=== PATIENT | male | born 1945 | race Caucasian/White ===

== ENCOUNTER 2025-01-03 09:40 | Day surgery (SDC) | payer MEDICARE, OTHER, SELFPAY ==
[2025-01-03] VITALS (12 sets, daily range): BP systolic 140–181; BP diastolic 64–100; BMI 33.6
[2025-01-03] MEDS: NSS 296 ML IV (10:37)
--- NOTE | 2025-01-03 11:48 | ITS.CL.PN ---
Customer Relations Consultant - Procedure Note
Procedure
Procedure Note:
CARDIAC CATHETERIZATION REPORT
Date of Procedure: 01/03/2025
Referring: Dr. Haris Garay MD
Indication: anginal chest pain
PROCEDURE(S)
1. left heart catheterization
2. coronary angiography
ACCESS: 6F right radial artery (closure: radial band)
CATHETERS
1. 6F JR4
2. 6F JL4
MODERATE SEDATION: 30 minutes of moderate sedation was utilized. An independent center medical and lab director was present to assist with and help manage the patient's level of consciousness and physiologic status.
HEMODYNAMIC DATA
LV 155/8 (EDP 14) mmHg
AO 160/75 (mean 111) mmHg
CORONARY ANGIOGRAPHY
Dominance: right
LM: large, normal
LAD: large vessel giving rise a moderate caliber D1 and wrapping around the apex. There is mild diffuse disease that is focally up to 30% just distal to the diagonal takeoff.
LCx: large vessel giving rise to a small OM1, small OM2, and large branching OM3. There is mild diffuse disease.
RCA: large vessel giving rise to a moderate caliber RPDA and several small RPL branches. There is mild diffuse disease.
RADIATION: dose 531 mGy; DAP 32.2 Gy*cm2; fluoroscopy time 5.8 min
CONCLUSIONS
1. 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
2. Mildly elevated LV filling pressure and no aortic stenosis
RECOMMENDATIONS
1. Secondary prevention of coronary artery disease
2. Further workup for etiology of angina not related to epicardial coronary artery disease
Copy to: Dr. Haris Garay MD (sand molder); Dr. Magdiel Man MD (PCP)
Signed: Santiago See MD, PhD
[2025-01-03] MEDS: NSS 1000 IV (12:49)
== END 2025-01-03 15:39 | disposition home or self-care (01) ==
LOC: CATH 09:40
PROVIDERS: ATTENDING PHYSICIAN Student in an Organized Health Care Education/Training Program; FAMILY PHYSICIAN Internal Medicine; OTHER PHYSICIAN Internal Medicine Cardiovascular Disease
DX: R07.9 Chest pain, unspecified (principal); I12.9 Hypertensive chronic kidney disease with stage 1 through stage 4 chronic kidney disease, or unspecified chronic kidney disease; N18.9 Chronic kidney disease, unspecified; Z79.899 Other long term (current) drug therapy
CPT/HCPCS: 99152; 99153; 93458; C1894; Q9967